=== PATIENT | female | born 1950 | race Caucasian/White ===

== ENCOUNTER 2023-05-28 20:24 | Emergency (ER) | payer BC ==
[~2023-05-28] VITALS: Ht 157.5 cm; Wt 84.1 kg
[~2023-05-28 20:24] MED LIST: ASPI-247; DIAVAN; LOVA10TA54; PLAVIX; PREVACID
[2023-05-28] MEDS ORDERED: BACITRACIN TOP OINT 1 UD PKG TOP ONE (23:30)
[2023-05-29 00:40] VITALS: BP 122/65; PULSE 96; RESP 20; TEMP 97.9; O2SAT 93
== END 2023-05-28 23:54 | disposition home or self-care (01) ==
LOC: EDBD 20:24 → ER 20:27
DX: S00.01XA Abrasion of scalp, initial encounter (principal); Z79.899 Other long term (current) drug therapy; Z79.82 Long term (current) use of aspirin; W01.0XXA Fall on same level from slipping, tripping and stumbling without subsequent striking against object, initial encounter; Y93.89 Activity, other specified; Y92.89 Other specified places as the place of occurrence of the external cause; Y99.8 Other external cause status
CPT/HCPCS: 70450; 72125